=== PATIENT | male | born 1975 | race Two or more races ===

== ENCOUNTER 2023-12-21 19:44 | Emergency (ER) | payer OTHER ==
[~2023-12-21] VITALS: Ht 175.3 cm; Wt 79.4 kg
[2023-12-21] MEDS ORDERED: CLONIDINE HCL 0.2 MG TABLET ONE (20:33)
[2023-12-21] MEDS ORDERED: methylPREDNISolone SOD SUCC 125 MG/2 ML VIAL ONE (20:33)
[2023-12-21] MEDS ORDERED: diphenhydrAMINE 50 MG/1 ML VIAL ONE (20:33)
[2023-12-21 20:40] LABS: BASOPHILS # (AUTO) 0.1 K/UL (0.0-0.2); BASOPHILS % (AUTO) 0.9 % (0.0-2.0); EOSINOPHILS # (AUTO) 0.2 K/uL (0.0-0.7); EOSINOPHILS % (AUTO) 1.4 % (0.0-7.0); HEMATOCRIT 39.2 % (36.7-47.1); HEMOGLOBIN 13.3 g/dL (12.5-16.3); LYMPHOCYTES # (AUTO) 2.2 K/uL (0.8-4.8); LYMPHOCYTES % (AUTO) 16.8 % (20.5-51.5); MEAN CORPUSCULAR HEMOGLOBIN 32.6 uug (23.8-33.4); MEAN CORPUSCULAR HGB CONC 34 g/dL (32.5-36.3); MEAN CORPUSCULAR VOLUME 96.5 fL (73.0-96.2); MONOCYTES # (AUTO) 0.7 K/uL (0.1-1.30); MONOCYTES % (AUTO) 5.6 % (0.0-11.0); NEUTROPHILS % (AUTO) 75.3 % (38.5-71.5); PLATELET COUNT (AUTO) 359 K/uL (152-348); RED BLOOD CELL COUNT(AUTO) 4.06 MIL/uL (4.06-5.63); RED CELL DISTRIBUTION WIDTH 13.6 % (12.1-16.2); WHITE BLOOD COUNT (AUTO) 13.3 K/uL (3.6-10.2)
[2023-12-21 20:42] LABS: DIFFERENTIAL COMMENT 1
[2023-12-21] MEDS: CLONIDINE HCL 0.2 MG TABLET PO ONE (20:43)
[2023-12-21] MEDS: IV NS 1000 ML 1,000 ML IV ONE (20:44)
[2023-12-21 20:50] LABS: CALCIUM 9.6 mg/dL (8.5-10.1); CARBON DIOXIDE 23 mmol/L (21-32); CHLORIDE 103 mmol/L (98-107); CREATININE 1.2 mg/dL (0.6-1.3); GLUCOSE 121 mg/dL (74-106); POTASSIUM 3.1 mmol/L (3.5-5.1); SODIUM SERUM 141 mmol/L (136-145); UREA NITROGEN, BLOOD 19 mg/dL (7-18)
[2023-12-21 20:54] LABS: ETHANOL < 3 MG/DL (0-10)
[2023-12-21] MEDS: methylPREDNISolone SOD SUCC 125 MG/2 ML VIAL IV ONE (20:54)
[2023-12-21] MEDS: diphenhydrAMINE 50 MG/1 ML VIAL IV ONE (20:54)
[2023-12-21] MEDS ORDERED: predniSONE 50 MG TABLET ONE (20:58)
[2023-12-21] MEDS ORDERED: diphenhydrAMINE 50 MG CAPSULE ONE (20:58)
[2023-12-21] MEDS: predniSONE 50 MG TABLET PO ONE (21:01)
[2023-12-21] MEDS: diphenhydrAMINE 50 MG CAPSULE PO ONE (21:01)
[2023-12-21 21:02] LABS: ALANINE AMINOTRANSFERASE 82 U/L (16-63); ALBUMIN 4.5 g/dL (3.4-5.0); ALKALINE PHOSPHATASE 104 U/L (50-136); ASPARTATE AMINOTRANSFERASE 31 U/L (15-37); BILIRUBIN,TOTAL 1.5 mg/dL (0.2-1.0); NT-PRO BNP 25 pg/mL (0-125); TOTAL PROTEIN, SERUM 8.3 g/dL (6.4-8.2)
[2023-12-21 21:23] LABS: *BLOOD, URINE NEGATIVE (NEGATIVE); *CLARITY,URINE CLEAR (CLEAR); *COLOR,URINE YELLOW (YELLOW); *KETONES,URINE 1+ (NEGATIVE); *PROTEIN,URINE 1+ (NEGATIVE); LEUKOCYTE ESTERASE ,URINE 1+ (NEGATIVE); NITRITE, URINE NEGATIVE (NEGATIVE); UGLUCOSE TRACE (NEGATIVE)
[2023-12-21 21:25] LABS: *BILIRUBIN,URIN 1+ (NEGATIVE); RBC,URINE 0-3 /HPF (0-3)
[2023-12-21 21:44] LABS: *AMPHETAMINE, URINE POSITIVE (NEGATIVE); *BARBITURATE, URINE NEGATIVE (NEGATIVE); *BENZODIAZEPINE, URINE NEGATIVE (NEGATIVE); *CANNABINOID, URINE POSITIVE (NEGATIVE); *COCCAINE, URINE NEGATIVE (NEGATIVE); *OPIATE, URINE NEGATIVE (NEGATIVE); *PHENCYCLIDINE SCREEN,URINE NEGATIVE (NEGATIVE); FENTANYL, URINE NEGATIVE (NEGATIVE)
[2023-12-21] MEDS ORDERED: DIPH25TA62 PO (23:37)
[2023-12-21] MEDS ORDERED: PRED20TA PO (23:37)
[2023-12-22 00:09] VITALS: BP 133/94; TEMP 98; O2SAT 99
== END 2023-12-22 00:10 | disposition home or self-care (01) ==
LOC: ER 19:47
DX: R20.0 Anesthesia of skin (principal); R51.9 Headache, unspecified; T78.40XA Allergy, unspecified, initial encounter; R06.02 Shortness of breath; Z79.52 Long term (current) use of systemic steroids; X58.XXXA Exposure to other specified factors, initial encounter
CPT/HCPCS: 80053; 81001; 83880; 85025; 84484; 36415; 93005; 71045; 99285; 96374; 87086; 80320; 80307; Q0163; J7512; A4606; A4663; G0480; J1200; J2919; J7040